=== PATIENT | female | born 1990 | race Caucasian/White ===

== ENCOUNTER 2017-12-10 21:42 | Emergency (ER) | payer OTHER, MEDICAID ==
[~2017-12-10] VITALS: Ht 162.6 cm; Wt 69.1 kg
[2017-12-10 21:45] VITALS: BP 123/62
--- NOTE | 2017-12-10 21:50 | NUR ---
PT ASSISTED BACK TO LOBBY
--- NOTE | 2017-12-10 23:50 | NUR ---
PATIENT PRESENTS TO ED WITH ABDOMINAL PAIN, VAGINAL ITCHING. PATIENT STATES SHE RECENTLY TOOK MEDICATION FOR CHLAMYDIA, BUT IS UNSURE IF HER BOYFRIEND WAS SEEN AND MEDICATED FOR CHALMYDIA. PT DENIES N/V/D; SKIN IS PINK/WARM/DRY; AAOX4 WITH EVEN AND STEADY GAIT; LUNGS CLEAR BL; HR EVEN AND REGULAR; PT DENIES ANY FEVER, CP, SOB, OR COUGH AT THIS TIME; PATIENT STATES PAIN OF 5/10 AT THIS TIME; VSS; PATIENT POSITIONED FOR COMFORT; HOB ELEVATED; BEDRAILS UP X1; BED DOWN. ER MD MADE AWARE OF PT STATUS.
[2017-12-11 00:20] VITALS: BP 123/62
--- NOTE | 2017-12-11 01:09 | NUR ---
PATIENT ELOPED FROM FACILITY. DISCHARGE INSTRUCTIONS NOT GIVEN TO PATIENT. DR. ALVAREZ NOTIFIED.
== END 2017-12-11 01:09 | disposition left against medical advice (07) ==
LOC: MED 21:42
DX: R10.30 Lower abdominal pain, unspecified (principal); R10.2 Pelvic and perineal pain; N89.8 Other specified noninflammatory disorders of vagina
CPT/HCPCS: 81002; 81025; 99282

== ENCOUNTER 2018-12-05 21:11 | Emergency (ER) | payer MEDICAID, OTHER ==
[~2018-12-05] VITALS: Ht 162.6 cm; Wt 66.8 kg
[2018-12-05 21:14] VITALS: BP 107/60
--- NOTE | 2018-12-05 21:14 | NUR ---
TO BED # 02 AMBULATORY
--- NOTE | 2018-12-05 21:20 | NUR ---
28 YO F BIB SELF AND BOYFRIEND PRESENTS TO ED C/O INGROWN NAIL TO RIGHT GREAT TOE. PT STATES SHE RECEIVED PEDICURE X 1 WEEK AGO AND THE [employer] TRAINER ATTEMPTED TO REMOVE INGROWN TOENAIL. LEFT GREAT TOE NOW APPEARS SWOLLEN, RED WITH WHITE DISCHARGE. PT REPORTS 8/10 THROBBING PAIN THAT IS WORSE WHILE WALKING. PT ALSO STATES SHE IS 9 WEEKS . TOOK TYLENOL 1 HOUR PRIOR TO COMING HERE AND HAS BEEN APPLYING ANTIBIOTIC OINTMENT TO AFFECTED SITE. DENIES FEVER. PMH-- DENIES
[2018-12-05] MEDS ORDERED: BACITRACIN OINT 500 UNITS/GM PKT TP ONE ×2 (21:35→21:47)
--- NOTE | 2018-12-05 21:40 | NUR ---
PT WOUND IRIGATED WITH NORMAL SALINE AND HYDROGEN PEROXIDE PER MARTIR BRYANT
--- NOTE | 2018-12-05 21:46 | NUR ---
PT WOUND COVERED WITH NON ADHERENT DRESSING AND WRAPPED WITH COFLEX AFTER BACITRACIN APPLIED. +CSM
[2018-12-05 21:57] VITALS: BP 107/60
--- NOTE | 2018-12-05 21:57 | NUR ---
Patient discharged with v/s stable. Written and verbal after care instructions given and explained. Patient alert, oriented and verbalized understanding of instructions. Ambulatory with steady gait. All questions addressed prior to discharge. ID band removed. Patient advised to follow up with PMD. Rx of Bacitracin, Keflex and Extra Strength Tylenol given. Patient educated on indication of medication including possible reaction and side effects. Opportunity to ask questions provided and answered.
== END 2018-12-05 21:57 | disposition home or self-care (01) ==
LOC: MED 21:11
DX: L03.031 Cellulitis of right toe (principal)
CPT/HCPCS: 99282; 99283